=== PATIENT | male | born 1965 | race Two or more races ===

== ENCOUNTER 2017-10-02 15:24 | Outpatient (CLI) | payer OTHER ==
[~2017-10-02] VITALS: Ht 185.4 cm; Wt 95.3 kg
== END 2017-10-02 15:40 | disposition home or self-care (01) ==
LOC: OFIC 805 15:24
DX: J30.89 Other allergic rhinitis (principal); H66.93 Otitis media, unspecified, bilateral; R09.81 Nasal congestion

== ENCOUNTER 2017-11-15 09:09 | Outpatient (CLI) | payer OTHER | END 2017-11-15 09:17 | disposition home or self-care (01) | LOC: RAD 501 09:09 | DX: M25.552 Pain in left hip (principal); M25.562 Pain in left knee ==

== ENCOUNTER → 2017-11-16 | Outpatient (CLI) | payer OTHER | END | disposition home or self-care (01) | LOC: LAB 15:04 | DX: E11.9 Type 2 diabetes mellitus without complications (principal) ==